=== PATIENT | female | born 1935 | race Native Hawaiian/Other Pacific Islander ===

== ENCOUNTER 2018-12-18 11:14 | Emergency (ER) | payer OTHER, MEDICAID ==
[~2018-12-18] VITALS: Ht 154.9 cm; Wt 68.6 kg
[~2018-12-18 11:14] MED LIST: ATOR40TA71 PO; CLON.3 PO; DABI150 PO; DILT360T12 PO; FURO20 PO; LOSA50TA64 PO; SITA1TAB2 PO
[2018-12-18 11:40] LABS: GLUCOSE,POINT OF CARE 276 MG/DL (70-110)
[2018-12-18] MEDS ORDERED: AUD NEB (11:54)
[2018-12-18] MEDS ORDERED: PANT40TA25 PO (11:54)
[2018-12-18] MEDS ORDERED: SITA100 PO (11:54)
[2018-12-18] MEDS ORDERED: APIX5TAB PO (11:54)
[2018-12-18] MEDS ORDERED: IPRNEB IH (11:54)
[2018-12-18] MEDS ORDERED: DSS100 PO (11:54)
[2018-12-18] MEDS ORDERED: FE PR (11:54)
[2018-12-18] MEDS ORDERED: PRED5 PO (11:54)
[2018-12-18] MEDS ORDERED: BISA-46 PO (11:54)
[2018-12-18] MEDS ORDERED: MOM30 PO (11:54)
[2018-12-18] MEDS ORDERED: PRED10 PO (11:54)
[2018-12-18] MEDS ORDERED: NITR.6 SL (11:54)
[2018-12-18 12:01] LABS: BASOPHILS % (AUTO) 0.4 % (0.0-2.0); EOSINOPHILS % (AUTO) 1.8 % (1.0-6.0); HEMATOCRIT 31.6 % (36-46); HEMOGLOBIN 10.3 g/dL (12.0-16.0); LYMPHOCYTES # (AUTO) 1.1 K/uL (1.0-4.8); LYMPHOCYTES % (AUTO) 10.3 % (22.0-44.0); MEAN CORPUSCULAR HEMOGLOBIN 32.3 pg (26.0-34.0); MEAN CORPUSCULAR HGB CONC 32.4 G/dL (31.0-37.0); MEAN CORPUSCULAR VOLUME 100 fL (80-100); MONOCYTES # (AUTO) 0.7 K/uL (0.1-1.0); MONOCYTES % (AUTO) 6.8 % (2.0-9.0); NEUTROPHILS # (AUTO) 8.8 K/uL (1.8-7.7); NEUTROPHILS % (AUTO) 80.7 % (40.0-70.0); PLATELET COUNT (AUTO) 235 K/uL (150-450); RED BLOOD CELL COUNT(AUTO) 3.17 MIL/uL (4.00-5.20); RED CELL DISTRIBUTION WIDTH 19.2 % (11.5-14.5)
[2018-12-18 12:16] LABS: CALCIUM, TOTAL 9.1 mg/dL (8.8-10.5); CREATININE 1.6 mg/dL (0.60-1.30); POTASSIUM 3.6 mmol/L (3.5-5.1)
[2018-12-18 12:31] LABS: ALBUMIN 2.9 g/dL (3.4-5.0); BILIRUBIN,TOTAL 0.7 mg/dL (0.1-1.0); TOTAL PROTEIN, SERUM 6.3 g/dL (6.4-8.2)
[2018-12-18] MEDS ORDERED: FUROSEMIDE 40 MG/4 ML VIAL IVP ONE (12:45)
[2018-12-18 13:11] LABS: APPEARANCE,URINE CLEAR (CLEAR); BILIRUBIN,URINE NEGATIVE (NEGATIVE); GLUCOSE, URINE (UA) 100 mg/dL (NEGATIVE); KETONES,URINE NEGATIVE (NEGATIVE); LEUKOCYTE ESTERASE ,URINE NEGATIVE (NEGATIVE); NITRATE,URINE NEGATIVE (NEGATIVE); OCCULT BLOOD,URINE NEGATIVE (NEGATIVE); PROTEIN,URINE NEGATIVE (NEGATIVE)
[2018-12-18 13:18] LABS: BACTERIA,URINE None Seen /HPF (None Seen); RBC,URINE 0-2 /HPF (0-2); WBC,URINE 0-2 /HPF (0-5)
[2018-12-18 17:01] VITALS: BP 146/73
== END 2018-12-18 17:33 | disposition short-term general hospital (02) ==
LOC: EMS 11:16
DX: I11.0 Hypertensive heart disease with heart failure (principal); I50.9 Heart failure, unspecified; N17.9 Acute kidney failure, unspecified; E44.0 Moderate protein-calorie malnutrition; E11.65 Type 2 diabetes mellitus with hyperglycemia; R53.1 Weakness; Z68.28 Body mass index [BMI] 28.0-28.9, adult
CPT/HCPCS: 36415; 71045; 80053; 81001; 82962; 83605; 83880; 84484; 85025; 93005; 96374; 99291; J1940